=== PATIENT | male | born 1950 | race Caucasian/White ===

== ENCOUNTER 2018-03-03 16:22 | Emergency (ER) | payer MEDICARE, OTHER, SELFPAY ==
[2018-03-03 16:24] VITALS: BP 141/76; PULSE 65; RESP 24; TEMP 36.2; O2SAT 94; BMI 23.3
[2018-03-03 16:43] VITALS: BP 161/77; PULSE 66; RESP 16; O2SAT 94
--- NOTE | 2018-03-03 17:00 | RAD_ITS ---
STUDY: X-RAY CHEST REASON FOR EXAM: Male, 68 years old. SOB. TECHNIQUE: PA and lateral. COMPARISON: None. FINDINGS: There is hyperlucency and mild hyperinflation of the lungs consistent with chronic obstructive lung disease (COPD). There is no demonstrated pleural abnormality. Normal size heart. Normal mediastinum and shiv. Normal visualized pulmonary arteries. Normal visualized aortic arch and descending thoracic aorta. Normal visualized thoracic spine. Normal visualized ribs, clavicles, and shoulders. There is no demonstrated abnormality of the visualized soft tissue structures of the upper abdomen. RAD/Chest PA and Lateral IMPRESSION: 1. No acute process. 2. Mild COPD. Electronically Signed: Serene Barth MD at 17:47 EDT Tel , Service support ,
[2018-03-03] MEDS: Ipratropium/Albuterol Sulfate 3 ML AMPUL.NEB INHALATION (17:10)
[2018-03-03] MEDS: Albuterol 2.5 MG/3 ML VIAL.NEB. INHALATION ×3 (17:10→18:13)
[2018-03-03 17:11] VITALS: PULSE 73; RESP 22
[2018-03-03 17:30] VITALS: BP 161/77; PULSE 69; RESP 20; O2SAT 94
[2018-03-03] MEDS: predniSONE 20 MG Tablet 60 MG PO (17:31)
[2018-03-03 18:15] VITALS: PULSE 72; RESP 20
--- NOTE | 2018-03-03 19:03 | ED.VISSUMM ---
- ER Visit Summary Date of Service: 03/03/18 Chief Complaint: Shortness of breath History of Present Illness: The patient is a 68 M with history of COPD. He had bronchitis/COPD exacerbation 2 weeks ago that was treated with prednisone and doxycycline. Patient states he completed that course of medication 1 week ago and did feel significantly improved. Over the past several days has been out using a weed eater and cutting brush and that seems to worsen his breathing symptoms. Symptoms have progressively worsened for the past 3 days. Patient was seen at urgent care today and had an O2 sat of 89% on room air. Patient did report a 3-hour car ride today, but symptoms had started prior to this travel. He does not have chest pain. Physical Examination: Vital signs grossly unremarkable. Pulse ox is 94% on room air. Patient sitting upright in bed no acute distress. He speaking full sentences. Head neck examination normal. Heart is regular rate and rhythm. Lung sounds are diminished throughout. Abdomen is soft nontender. Test Results: Two-view chest x-ray shows no acute process. Mild COPD is noted. Emergency Department Course and Treatment: Patient is given prednisone and aerosols. After first round of aerosols he had increased air movement throughout, but now had diffuse wheezing. He was given 1 additional albuterol treatment. At this time he has mild expiratory wheezing. O2 sat has maintained in the low to mid 90s. He will be discharged with a prescription for prednisone taper along with doxycycline. He will be given a spacer to use with his inhaler. Treatment Plan: [] Disposition: Discharge Impression: COPD exacerbation This note was generated with noodls dictation software. It may contain incorrect words, spelling, and punctuation that were not noted in review of the chart prior to signing ED Disposition - Plan for ED Patient: Chief Complaint: Shortness of Breath Referrals: [facility],[place] [Primary Care Provider] -
--- NOTE | 2018-03-03 19:05 | ED.DEP ---
ED Disposition - Plan for ED Patient: Disposition: Home or Assisted Living Chief Complaint: Shortness of Breath Instructions: ED COPD Flare Prescriptions: Prednisone 10 mg PO UD #33 tablet Doxycycline 100 mg PO BID #20 capsule [facility] [Primary Care Provider] - 3-5 Days if not improving
[2018-03-03] MEDS: Doxycycline 100 MG CAPSULE PO (19:25)
[2018-03-03 19:27] VITALS: BP 139/89; PULSE 77; RESP 19; O2SAT 93
--- NOTE | 2018-03-03 19:28 | ED.RN ---
PT GIVEN WRITTEN AND VERBAL INSTRUCTIONS AND HOME GOING PRESCRIPTIONS. PT GIVEN SPACER FOR HIS AT HOME INHALER BY RESPIRATORY PER DR. MEJIA VERBAL ORDER. PT DENIES ANY QUESTIONS AND VERBALIZES UNDERSTANDING. PT DRESSES SELF AND AMBULATES OUT OF DEPT WITH FAMILY.
--- NOTE | 2018-03-04 14:31 | CM.ED ---
ED CALLBACK: Follow-up call placed to patient. Patient states he is feeling better. He states he's filled his prescription and is taking his meds. He denies any needs or questions at this time.
== END 2018-03-03 19:30 | disposition home or self-care (01) ==
PROVIDERS: Emergency Provider Emergency Medicine
DX: J44.1 Chronic obstructive pulmonary disease with (acute) exacerbation (principal); I11.0 Hypertensive heart disease with heart failure; I50.9 Heart failure, unspecified; I25.2 Old myocardial infarction; E78.00 Pure hypercholesterolemia, unspecified; Z95.5 Presence of coronary angioplasty implant and graft; Z79.82 Long term (current) use of aspirin; Z79.899 Other long term (current) drug therapy; Z72.0 Tobacco use
CPT/HCPCS: 71046; 94640; 94664; 99284

== ENCOUNTER → 2022-02-09 | Outpatient (CLI) | payer MEDICARE, OTHER, SELFPAY ==
--- NOTE | 2022-02-09 08:25 | CT_ITS ---
STUDY: CT CHEST WITHOUT CONTRAST REASON FOR EXAM: Male, 72 years old. PULMONARY NODULE RADIATION DOSAGE (If Supplied By Facility): CTDIvol = ( 6.69 ) mGy, DLP = ( 224.5 ) mGycm TECHNIQUE: Transaxial imaging was performed without the administration of intravenous contrast material. Multiplanar coronal and sagittal images were reformatted. Individualized dose optimization techniques were used for this CT. COMPARISON: No relevant priors. FINDINGS: CHEST Hyperinflation. Increased interstitial markings at the lung bases suggestive of scarring. Scarring is also seen in the medial aspect of the left upper lobe and right middle lobe. There is no demonstrated pleural abnormality. There are calcifications of the coronary arteries. There are multiple small lymph nodes within the mediastinum, which are normal in size and morphology most compatible with reactive lymph hyperplasia. Normal hilar regions. Normal unenhanced pulmonary arteries. There is atherosclerotic calcification of the aortic arch with tortuosity and elongation of the aortic arch and descending thoracic aorta. There are multi-level degenerative changes of the thoracic spine. There is a 2.8 RANGEL by 2.4 cm cyst in the upper pole of the right kidney. Atherosclerotic calcific plaques of the abdominal aorta and major branches. CT/Chest without Contrast IMPRESSION: Findings indicative of scarring at both lung bases as well as the medial aspect of the left upper lobe and anterior right middle lobe. Electronically Signed: John Chapman MD at 13:13 EDT ,
== END | disposition home or self-care (01) ==
LOC: CT 08:22
PROVIDERS: Referring Provider Internal Medicine; Visit Provider Internal Medicine
DX: R91.1 Solitary pulmonary nodule (principal)
CPT/HCPCS: 71250